=== PATIENT | female | born 1930 | race Caucasian/White ===

== ENCOUNTER 2018-03-07 08:16 | Emergency (ER) | payer OTHER ==
[~2018-03-07] VITALS: Ht 157.5 cm; Wt 78.0 kg
[~2018-03-07 08:16] MED LIST: AMIO200T PO; APIX2.5T PO; BENZ-17 PO; CARV3.1212 PO; FURO-92 PO; LISI5TAB7 PO; LOSA50TA7 PO; NABU500T PO; POTA20TA14 PO
[2018-03-07] MEDS ORDERED: ACET325T14 PO (08:56)
[2018-03-07] MEDS ORDERED: LEVO50TA5 PO (08:56)
[2018-03-07] MEDS ORDERED: LOSA25TA6 PO (08:56)
[2018-03-07] MEDS ORDERED: CYCLOBENZAPRINE 10 MG TABLET PO ONE (09:30)
[2018-03-07] MEDS ORDERED: CYCLOBENZAPRINE 10 MG TABLET ONE (09:41)
[2018-03-07 11:01] VITALS: BP 156/58
== END 2018-03-07 11:45 | disposition home or self-care (01) ==
LOC: ED 11:35
DX: S39.012A Strain of muscle, fascia and tendon of lower back, initial encounter (principal); I48.91 Unspecified atrial fibrillation; I11.0 Hypertensive heart disease with heart failure; I50.9 Heart failure, unspecified; Z85.3 Personal history of malignant neoplasm of breast; W19.XXXA Unspecified fall, initial encounter; Y93.89 Activity, other specified; Y92.89 Other specified places as the place of occurrence of the external cause; Y99.8 Other external cause status
CPT/HCPCS: 99283